=== PATIENT | female | born 2000 | race Two or more races ===

== ENCOUNTER 2021-10-06 09:00 | Emergency (ER) | payer OTHER ==
[~2021-10-06] VITALS: Ht 167.6 cm; Wt 113.4 kg
[2021-10-06 12:11] VITALS: BP 124/74
[2021-10-06] MEDS ORDERED: ACET-1158 PO (12:24)
[2021-10-06] MEDS ORDERED: AMOX-277 PO (12:24)
== END 2021-10-06 12:42 | disposition home or self-care (01) ==
LOC: ER 09:00
DX: J01.90 Acute sinusitis, unspecified (principal); J45.909 Unspecified asthma, uncomplicated; Z79.2 Long term (current) use of antibiotics; Z79.899 Other long term (current) drug therapy

== ENCOUNTER 2022-02-23 07:31 | Emergency (ER) | payer MEDICAID, OTHER ==
[~2022-02-23] VITALS: Ht 167.6 cm; Wt 125.5 kg
[~2022-02-23 07:31] MED LIST: ACET-1158 PO; AMOX-277 PO
[2022-02-23 08:17] LABS: Basophils # (auto) 0 10 ^3/uL (0-0.2); Basophils % (auto) 0.5 % (0.0-2.0); Eosinophils # (auto) 0.2 10 ^3/uL (0-0.8); Eosinophils % (auto) 2.1 % (0.0-7.0); Lymphocytes # (auto) 2.2 10 ^3/uL (0.4-5.4); Lymphocytes % (auto) 26.2 % (10.0-50.0); Mean Corpuscular Hemoglobin 30.2 pg (28.0-32.0); Mean Corpuscular Hgb Conc. 33.3 g/dL (32.0-36.0); Mean Corpuscular Volume 90.5 fL (80.0-100.0); Monocytes # (auto) 0.9 10 ^3/uL (0-1.3); Monocytes % (auto) 10.1 % (0.0-12.0); Neutrophils # (auto) 5.2 10 ^3/uL (1.6-8.6); Neutrophils % (auto) 61.1 % (37.0-80.0); Nucleated Red Blood Cells % 0.2 %; Red Blood Cells 4.64 10^6/uL (4.0-5.20); Red Cell Distribution Width 12.8 % (11.8-14.3); White Blood Cell 8.4 10^3/uL (4.4-10.8)
[2022-02-23 08:32] LABS: Albumin 3.7 g/dL (3.4-5.0); Calcium 8.9 mg/dL (8.5-10.1); Potassium 4.4 mmol/L (3.5-5.1)
[2022-02-23 08:35] LABS: Bilirubin, Total 0.6 mg/dL (0.2-1.0); Total Protein 7.4 g/dL (6.4-8.2)
[2022-02-23 09:46] LABS: Urine Bacteria FEW /hpf (None Seen); Urine Blood Negative /uL (Negative); Urine Specific Gravity 1.014 (1.001-1.035); Urine WBC 1 /hpf (0 - 5)
[2022-02-23 10:00] LABS: Alcohol, Urine < 3.0 mg/dL (0-10); Amphetamine Screen, Urine NEGATIVE (NEGATIVE); Barbiturate Scree,Urine NEGATIVE (NEGATIVE); Benzodiazephine Screen, Urine NEGATIVE (NEGATIVE); Cannabinoid Screen, Urine NEGATIVE (NEGATIVE); Cocaine Screen, Urine NEGATIVE (NEGATIVE); Opiate Scree,Urine NEGATIVE (NEGATIVE); Phencyclidine Screen, Urine NEGATIVE (NEGATIVE)
[2022-02-23] MEDS ORDERED: AZIT500T PO (11:43)
[2022-02-23] MEDS ORDERED: DEXT1SYP9 GT (11:43)
[2022-02-23 12:15] VITALS: BP 124/85
== END 2022-02-23 12:22 | disposition home or self-care (01) ==
LOC: ER 07:31
DX: R07.89 Other chest pain (principal); J20.9 Acute bronchitis, unspecified; J45.909 Unspecified asthma, uncomplicated; Z20.822 Contact with and (suspected) exposure to COVID-19
CPT/HCPCS: 36415; 71046; 80053; 80307; 81001; 81025; 84484; 85025; 93005

== ENCOUNTER 2022-03-17 18:18 | Emergency (ER) | payer MEDICAID, OTHER ==
[~2022-03-17] VITALS: Ht 167.6 cm; Wt 113.0 kg
[~2022-03-17 18:18] MED LIST changes: +AZIT500T PO; +DEXT1SYP9 GT
[2022-03-17] MEDS ORDERED: ALBUTEROL SULF 2.5 MG/0.5ML(0.5%) NEB SOLN NEB ONE (20:30)
[2022-03-17] MEDS ORDERED: AZITTAB PO (23:26)
[2022-03-17] MEDS ORDERED: BENZ100C19 PO (23:28)
[2022-03-17] MEDS ORDERED: ALBU1.257 IN (23:29)
[2022-03-17 23:55] VITALS: BP 146/89
== END 2022-03-17 23:55 | disposition home or self-care (01) ==
LOC: ER 18:19
DX: R05.9 Cough, unspecified (principal); R06.2 Wheezing; J45.909 Unspecified asthma, uncomplicated; Z79.2 Long term (current) use of antibiotics; Z79.899 Other long term (current) drug therapy
CPT/HCPCS: 71046; 93005; 94640

== ENCOUNTER 2022-05-09 10:23 | Emergency (ER) | payer MEDICAID, OTHER ==
[~2022-05-09] VITALS: Ht 167.6 cm; Wt 118.0 kg
[~2022-05-09 10:23] MED LIST changes: +ALBU1.257 IN; +AZITTAB PO; +BENZ100C19 PO
[2022-05-09 11:17] VITALS: BP 151/87
[2022-05-09] MEDS ORDERED: PROM1SOL4 PO (12:11)
[2022-05-09] MEDS ORDERED: AZIT500T66 PO (12:11)
[2022-05-09] MEDS ORDERED: PRED20TA2 PO (12:11)
== END 2022-05-09 12:22 | disposition home or self-care (01) ==
LOC: ER 10:26
DX: J45.909 Unspecified asthma, uncomplicated (principal); R07.89 Other chest pain
CPT/HCPCS: 71045; 93005

== ENCOUNTER 2023-08-06 17:08 | Emergency (ER) | payer MEDICAID, OTHER ==
[~2023-08-06] VITALS: Ht 167.6 cm; Wt 120.0 kg
[~2023-08-06 17:08] MED LIST changes: -ACET-1158 PO; +ACET500T58 PO; -ALBU1.257 IN; +ALBU1.258 IN; -AMOX-277 PO; +AMOX875T4 PO; +AZIT500T66 PO; +PRED20TA2 PO; +PROM1SOL4 PO
[2023-08-06] MEDS: KETOROLAC TROMETH 60MG/2ML VIAL IM ONE (17:46)
[2023-08-06 17:47] VITALS: BP 136/90; PULSE 106; RESP 20; TEMP 98.3; O2SAT 98
[2023-08-06] MEDS ORDERED: METH-1182 PO (18:06)
[2023-08-06] MEDS ORDERED: IBUP-1456 PO (18:06)
== END 2023-08-06 18:17 | disposition home or self-care (01) ==
LOC: ER 17:08 → EDBD 17:08 → ER 18:17
DX: S32.018A Other fracture of first lumbar vertebra, initial encounter for closed fracture (principal); S46.912A Strain of unspecified muscle, fascia and tendon at shoulder and upper arm level, left arm, initial encounter; J45.909 Unspecified asthma, uncomplicated; Z79.1 Long term (current) use of non-steroidal anti-inflammatories (NSAID); Z79.2 Long term (current) use of antibiotics; Z79.899 Other long term (current) drug therapy; V49.9XXA Car occupant (driver) (passenger) injured in unspecified traffic accident, initial encounter; Y93.89 Activity, other specified; Y92.410 Unspecified street and highway as the place of occurrence of the external cause; Y99.8 Other external cause status
CPT/HCPCS: 72100; 73000; 96372; 99283; J1885